=== PATIENT | female | born 1970 | race Caucasian/White ===

== ENCOUNTER → 2016-10-26 | Outpatient (CLI) | payer BC ==
[~2016-10-26] MED LIST: ATV5 PO; B-COCAP2 PO; ESCI10TA17 PO; LISI5TAB3 PO
== END | disposition home or self-care (01) ==
LOC: C.PAPS 15:59
PROVIDERS: ATTEND Obstetrics & Gynecology
DX: Z01.419 Encounter for gynecological examination (general) (routine) without abnormal findings (principal)